=== PATIENT | male | born 1955 | race Caucasian/White ===

== ENCOUNTER 2017-11-20 09:13 | Inpatient (IN) | payer BC ==
[2017-11-20] MEDS ORDERED: MECLIZINE 12.5 MG TAB PO STA (09:39)
[2017-11-20] MEDS ORDERED: METOCLOPRAMIDE 5 MG/ML 2 ML VIAL IVP STA (09:39)
--- NOTE | 2017-11-20 09:43 | ED ---
General Adult HPI - General Chief complaint: Dizziness Stated complaint: Dizzy Time Seen by Provider: 11/20/17 09:33 Source: patient, family, RN notes reviewed Mode of arrival: wheelchair Limitations: no limitations - History of Present Illness Initial comments: Patient is a pleasant 62-year-old male presenting to the emergency department with dizziness. Onset was yesterday. Symptoms have been waxing and waning. Patient does have spinning type sensation. Patient at times has needed help ambulating. Patient has had some blurred vision. No weakness. Patient has had some paresthesias of both of his hands. No confusion. Patient has had a couple episodes of mild chest discomfort. None at this time. Dizziness improved with lying down and worsens with upright position or movements. - Related Data Home Medications Medication Instructions Recorded Confirmed Ibuprofen [Motrin Ib] 400 mg PO Q6H PRN 11/20/17 11/20/17 Allergies Allergy/AdvReac Type Severity Reaction Status Date / Time No Known Allergies Allergy Unverified 11/20/17 10:04 Review of Systems ROS Statement: Those systems with pertinent positive or pertinent negative responses have been documented in the HPI. ROS Other: All systems not noted in ROS Statement are negative. Constitutional: Denies: fever Eyes: Denies: eye pain ENT: Denies: ear pain Respiratory: Denies: cough Cardiovascular: Reports: chest pain Endocrine: Denies: fatigue Gastrointestinal: Reports: nausea. Denies: vomiting Genitourinary: Denies: dysuria Musculoskeletal: Denies: back pain Skin: Denies: rash Neurological: Reports: vertigo. Denies: headache, weakness, confusion Past Medical History Past Medical History: Cancer Additional Past Medical History / Comment(s): hep c colon cancer History of Any Multi-Drug Resistant Organisms: None Reported Past Surgical History: Bowel Resection Past Psychological History: No Psychological Hx Reported Smoking Status: Current every day smoker Past Alcohol Use History: None Reported Past Drug Use History: Marijuana General Exam Limitations: no limitations General appearance: alert, in no apparent distress Head exam: Present: atraumatic Eye exam: Present: normal appearance, PERRL, EOMI. Absent: nystagmus ENT exam: Present: normal oropharynx Neck exam: Present: normal inspection Respiratory exam: Present: normal lung sounds bilaterally Cardiovascular Exam: Present: regular rate, normal rhythm GI/Abdominal exam: Present: soft. Absent: tenderness Extremities exam: Present: normal inspection. Absent: pedal edema, calf tenderness Neurological exam: Present: alert, oriented X3, CN II-XII intact. Absent: motor sensory deficit Expanded Patient oriented to: Present: person, place, time Speech: Present: fluid speech Cranial nerves: EOM's Intact: Normal, Facial Sensation: Normal Cerebellar function: Finger to Nose: Normal Sensory exam: Upper Extremity Light Touch: Normal, Lower Extremity Light Touch: Normal Motor strength exam: RUE: 5, LUE: 5, RLE: 5, LLE: 5 Eye Response: (4) open spontaneously Motor Response: (6) obeys commands Verbal Response: (5) oriented Psychiatric exam: Present: normal affect, normal mood Skin exam: Present: normal color Course Vital Signs 11/20/17 11/20/17 09:19 11:05 Temperature 98.2 F 98.3 F Pulse Rate 61 50 L Respiratory 18 18 Rate Blood Pressure 173/79 135/74 O2 Sat by Pulse 100 98 Oximetry EKG Findings - EKG Comments: EKG Findings:: Atrial bradycardia with rate of 52. IL 156. QRS 106. QT 428. QTC 398. Normal axis. LVH. No acute ST change. Medical Decision Making - Medical Decision Making Patient reevaluated and is somewhat improved with medications. Patient is not quite symptom-free. Patient and family updated on results and plan. Case was discussed in detail with Dr. Ocampo, who will admit his patient. - Lab Data Result diagrams: 11/20/17 09:45 11/20/17 09:45 Lab Results 11/20/17 11/20/17 11/20/17 Range/Units 09:45 09:45 09:45 WBC 10.7 H (3.8-10.6) k/uL RBC 4.29 L (4.30-5.90) m/uL Hgb 14.2 (13.0-17.5) gm/dL Hct 41.8 (39.0-53.0) % MCV 97.5 (80.0-100.0) fL MCH 33.0 (25.0-35.0) pg MCHC 33.9 (31.0-37.0) g/dL RDW 13.7 (11.5-15.5) % Plt Count 275 (150-450) k/uL Neutrophils % 80 % Lymphocytes % 13 % Monocytes % 5 % Eosinophils % 1 % Basophils % 0 % Neutrophils # 8.5 H (1.3-7.7) k/uL Lymphocytes # 1.4 (1.0-4.8) k/uL Monocytes # 0.6 (0-1.0) k/uL Eosinophils # 0.1 (0-0.7) k/uL Basophils # 0.0 (0-0.2) k/uL PT (9.0-12.0) sec INR (<1.2) APTT (22.0-30.0) sec Sodium 138 (137-145) mmol/L Potassium 4.4 (3.5-5.1) mmol/L Chloride 101 (98-107) mmol/L Carbon Dioxide 25 (22-30) mmol/L Anion Gap 12 mmol/L BUN 14 (9-20) mg/dL Creatinine 0.90 (0.66-1.25) mg/dL Est GFR (MDRD) Af Amer >60 (>60 ml/min/1.73 sqM) Est GFR (MDRD) Non-Af >60 (>60 ml/min/1.73 sqM) Glucose 152 H (74-99) mg/dL Calcium 9.7 (8.4-10.2) mg/dL Total Bilirubin 0.5 (0.2-1.3) mg/dL AST 15 L (17-59) U/L ALT 19 L (21-72) U/L Alkaline Phosphatase 56 (38-126) U/L Total Creatine Kinase 64 (55-170) U/L CK-MB (CK-2) 1.1 (0.0-2.4) ng/mL CK-MB (CK-2) Rel Index 1.7 Troponin I <0.012 (0.000-0.034) ng/mL Total Protein 7.1 (6.3-8.2) g/dL Albumin 4.3 (3.5-5.0) g/dL 11/20/17 Range/Units 09:45 WBC (3.8-10.6) k/uL RBC (4.30-5.90) m/uL Hgb (13.0-17.5) gm/dL Hct (39.0-53.0) % MCV (80.0-100.0) fL MCH (25.0-35.0) pg MCHC (31.0-37.0) g/dL RDW (11.5-15.5) % Plt Count (150-450) k/uL Neutrophils % % Lymphocytes % % Monocytes % % Eosinophils % % Basophils % % Neutrophils # (1.3-7.7) k/uL Lymphocytes # (1.0-4.8) k/uL Monocytes # (0-1.0) k/uL Eosinophils # (0-0.7) k/uL Basophils # (0-0.2) k/uL PT 10.2 (9.0-12.0) sec INR 1.0 (<1.2) APTT 23.7 (22.0-30.0) sec Sodium (137-145) mmol/L Potassium (3.5-5.1) mmol/L Chloride (98-107) mmol/L Carbon Dioxide (22-30) mmol/L Anion Gap mmol/L BUN (9-20) mg/dL Creatinine (0.66-1.25) mg/dL Est GFR (MDRD) Af Amer (>60 ml/min/1.73 sqM) Est GFR (MDRD) Non-Af (>60 ml/min/1.73 sqM) Glucose (74-99) mg/dL Calcium (8.4-10.2) mg/dL Total Bilirubin (0.2-1.3) mg/dL AST (17-59) U/L ALT (21-72) U/L Alkaline Phosphatase (38-126) U/L Total Creatine Kinase (55-170) U/L CK-MB (CK-2) (0.0-2.4) ng/mL CK-MB (CK-2) Rel Index Troponin I (0.000-0.034) ng/mL Total Protein (6.3-8.2) g/dL Albumin (3.5-5.0) g/dL - Radiology Data Radiology results: report reviewed (Computed tomography scan of the brain does show some artifacts, otherwise no acute intercranial abnormality.), image reviewed (Chest x-ray shows no acute cardiopulmonary process.) Disposition Clinical Impression: Chest pain, Vertigo Disposition: ADMITTED IP TO THIS [facility] Referrals: Major Ocampo MD [Primary Care Provider] - 1-2 days Decision Time: 12:09
[2017-11-20 09:58] LABS: Basophils % (A) 0 %; Eosinophils # (A) 0.1 k/uL (0-0.7); Eosinophils % (A) 1 %; HCT 41.8 % (39.0-53.0); HGB 14.2 gm/dL (13.0-17.5); Lymphocytes # (A) 1.4 k/uL (1.0-4.8); Lymphocytes % (A) 13 %; MCHC 33.9 g/dL (31.0-37.0); MCV 97.5 fL (80.0-100.0); Mean Platelet Volume 7.3; Monocytes # (A) 0.6 k/uL (0-1.0); Monocytes % (A) 5 %; Neutrophils # (A) 8.5 k/uL (1.3-7.7); Neutrophils % (A) 80 %; Platelet Count 275 k/uL (150-450); RBC 4.29 m/uL (4.30-5.90); RDW 13.7 % (11.5-15.5); WBC 10.7 k/uL (3.8-10.6)
[2017-11-20 10:05] LABS: Partial Thromboplastin Time 23.7 sec (22.0-30.0); Prothrombin Time 10.2 sec (9.0-12.0)
[2017-11-20 10:11] LABS: ALT 19 U/L (21-72); AST 15 U/L (17-59); Albumin 4.3 g/dL (3.5-5.0); Alkaline Phosphatase 56 U/L (38-126); Anion Gap 12 mmol/L; Blood Urea Nitrogen 14 mg/dL (9-20); Calcium 9.7 mg/dL (8.4-10.2); Carbon Dioxide 25 mmol/L (22-30); Chloride 101 mmol/L (98-107); Glucose 152 mg/dL (74-99); Potassium 4.4 mmol/L (3.5-5.1); Sodium 138 mmol/L (137-145); Total Bilirubin 0.5 mg/dL (0.2-1.3); Total Protein 7.1 g/dL (6.3-8.2)
[2017-11-20 10:17] LABS: Creatine Kinase 64 U/L (55-170)
--- NOTE | 2017-11-20 10:21 | CT ---
EXAMINATION TYPE: CT brain wo con DATE OF EXAM: 11/20/2017 COMPARISON: NONE HISTORY: 62-year-old male with vertigo and dizziness TECHNIQUE: Examination was done in axial plane without intravenous contrast. Coronal and sagittal r econstructions performed. CT DLP: 1198 mGycm Automated exposure control for dose reduction was used. FINDINGS: There is no evidence of acute intracranial hemorrhage, acute ischemic changes, mass, mass-effect, or extra-axial fluid collection. There is no effacement of cerebral sulci or basal subarachnoid cister ns. There is no hydrocephalus. There is no midline shift. Montanez-white matter distinction is preserv ed. Some prominent skull base artifacts in the posterior cranial fossa. Paranasal sinuses and mastoid air cells are well pneumatized. Orbits and globes are intact. IMPRESSION: Some posterior artifacts. Within this limitation, no acute intracranial abnormality seen.
--- NOTE | 2017-11-20 10:22 | XR ---
EXAMINATION TYPE: XR chest 2V DATE OF EXAM: 11/20/2017 COMPARISON: 08/30/2010 HISTORY: 62-year-old male dizziness and pain TECHNIQUE: AP and lateral views FINDINGS: Heart normal size. Pulmonary vasculature within normal limits. Stable asymmetric prominence to the l eft hilum likely secondary to scarring. No consolidation or pleural effusion. Mild hyperinflation. IMPRESSION: Hyperinflation may relate to depth of inspiration or underlying emphysema. Left hilar asymmetry is un changed from 2009, probably due to scarring. No acute cardiopulmonary process.
[2017-11-20 10:30] LABS: Creatine Kinase MB 1.1 ng/mL (0.0-2.4); Troponin I <0.012 ng/mL (0.000-0.034)
[2017-11-20] MEDS ORDERED: NITROGLYCERIN SL TABS 0.4 MG TAB SUBLINGUAL PRN (12:10)
[2017-11-20] MEDS ORDERED: SCOPOLAMINE 1.5MG/72HR PATCH TRANSDERM STA (12:12)
[2017-11-20] MEDS ORDERED: MECLIZINE 25 MG TAB PO PRN (12:12)
[2017-11-20] MEDS: SODIUM CHLORIDE 0.9% 1,000 ML IV SCH ×2 (12:27→23:05)
[2017-11-20 16:22] LABS: Troponin I 0.035 ng/mL (0.000-0.034)
[2017-11-20] MEDS ORDERED: IBUPROFEN 400 MG TAB PO PRN (19:22)
[2017-11-20] MEDS: METOCLOPRAMIDE 10 MG TAB PO SCH ×2 (20:01→21:04)
[2017-11-20] MEDS: NITROGLYCERIN OINT 1 INCH/GM PACKET TOPICAL SCH ×2 (21:04→23:10)
[2017-11-20 22:17] LABS: Creatine Kinase MB 0.9 ng/mL (0.0-2.4)
[2017-11-20 22:25] LABS: Troponin I 0.04 ng/mL (0.000-0.034)
--- NOTE | 2017-11-21 05:12 | HP ---
HISTORY AND PHYSICAL CHIEF COMPLAINT: Dizziness, chest pain. HISTORY OF PRESENT ILLNESS: This is another admission of many for this 62-year-old, white male. He had CA of the colon many years ago and has not had any recurrence or sequelae. Takes no medications. He does smoke. He started to have some dizziness, which probably was vertiginous in description and due to labyrinthitis. Came to the emergency room and was assessed and at that time, he was talking about some tightness in his chest. It was decided that he should be admitted to rule out ischemia or myocardial infarction. Enzymes are normal. REVIEW OF SYSTEMS: He has had no syncope, change in vision or hearing, amaurosis fugax, chest pain, shortness of breath, cough, hemoptysis, sputum production, murmurs rheumatic fever, orthopnea, PND, abdominal pain, nausea, vomiting, hematemesis, melena, hematochezia, jaundice, etc. He did have hepatitis and this was treated and he is reported to be virus free. He has had no renal failure, dysuria, frequency, urgency, hematuria, diabetes, etc. Past medical history, family history and personal and social histories are all otherwise unremarkable and noncontributory. He is not on any medications. He is not allergic to any and he has had the procedure for the colon. FAMILY HISTORY: His father had some type of an aneurysm and he thinks it was of the heart. He smokes a pack cigarettes a day. PHYSICAL EXAM: Blood pressure 173/110 and then it dropped to 128/61, pulse is 50. He is afebrile. GENERAL: He appeared to be slender, well developed, well nourished, in no acute distress. Skin color is normal. Skin is warm, dry. Lymph nodes not enlarged. Head, ears, eyes, nose, mouth, and throat were normal. Neck veins not distended. Thyroid is not enlarged. Chest is clear. He has an increased AP diameter. Cardiac exam is normal. No murmurs or extra sounds. The abdomen is flat, soft, and nontender without visceromegaly or masses. Bowel sounds present. EXTREMITIES: Normal. Neurologically, he is intact. IMPRESSION: 1. Dizziness, probably due to viral labyrinthitis. 2. Chronic obstructive pulmonary disease. 3. Chest pain. 4. History of hepatitis C. 5. History cancer of the colon. PLAN: 1. Bed rest. 2. IV fluids. 3. Serial EKGs and enzymes. MMSARITAL / NICOLASN: [id number] /
[2017-11-21] MEDS: NITROGLYCERIN OINT 1 INCH/GM PACKET TOPICAL SCH (05:58)
[2017-11-21 06:52] LABS: Cholesterol 138 mg/dL (<200); HDL Cholesterol 36 mg/dL (40-60); LDL Cholesterol,Calculated 89 mg/dL (0-99); Triglycerides 67 mg/dL (<150)
[2017-11-21] MEDS: SODIUM CHLORIDE 0.9% 1,000 ML IV SCH ×3 (07:57→21:42)
--- NOTE | 2017-11-21 10:00 | P.CRDCN ---
History of Present Illness Consult date: 11/21/17 Requesting physician: Major Ocampo Chief complaint: Dizziness and near syncope History of present illness: This is a 62-year-old gentleman with no prior documented history of hypertension, no diabetes, no hyperlipidemia, history of hepatitis C, he is a smoker, also has history of cancer of the colon several years ago. He presents to the hospital with symptoms of dizziness and lightheadedness and a feeling like he may pass out. He does state he had 1 episode of chest discomfort approximately 2 days ago. Denies any overt shortness of breath, he does have productive cough of green sputum. CAT scan of the brain performed on admission reveals some posterior artifacts, no acute intracranial abnormality was noted. Chest x-ray shows hyperinflation, may relate to depth of inspiration or underlying emphysema. No acute process noted. EKG on admission shows a sinus bradycardia with no acute changes. Blood pressure on arrival 173/78 heart rate in the 50s to 60s, 100% on room air. Laboratory data was reviewed, white blood cell count 10.7, hemoglobin 14.2, platelet count 275. D-dimer 0.24. Sodium 138 , potassium 4.4, BUN 14, creatinine 0.9. AST 15, ALT 19, troponin 0.012, 0.035 , 0.040. At the time of my examination this morning, patient denies any dizziness or lightheadedness, no chest discomfort, continues to have productive cough of green sputum. Past Medical History Past Medical History: Cancer, Liver Disease Additional Past Medical History / Comment(s): Hep c successfully treated, colo/ rectal cancer with surgery/chemo/radiation, colon polyps, diverticular dx, L spontaneous pneumothoraxs with chest tube. History of Any Multi-Drug Resistant Organisms: None Reported Past Surgical History: Bowel Resection Additional Past Surgical History / Comment(s): colonoscopies/polypectomies Past Anesthesia/Blood Transfusion Reactions: No Reported Reaction Past Psychological History: No Psychological Hx Reported Additional Psychological History / Comment(s): Pt resides alone. He is independent. He does factory work. Smoking Status: Current every day smoker Past Alcohol Use History: None Reported Additional Past Alcohol Use History / Comment(s): Pt started smoking in 1971 and is less than a ppd smoker. Additional Drug Use History / Comment(s): Pt denies any past drug use. - Past Family History Father Additional Family Medical History / Comment(s): Father from a ruptured coronary aneurysm at the age of 49yrs. Mother Family Medical History: Cancer Additional Family Medical History / Comment(s): Mother had cervical cancer with metastasis to brain. she at the age of 60yrs. Medications and Allergies Home Medications Medication Instructions Recorded Confirmed Type Ibuprofen [Motrin Ib] 400 mg PO Q6H PRN 11/20/17 11/20/17 History Allergies Allergy/AdvReac Type Severity Reaction Status Date / Time No Known Allergies Allergy Unverified 11/20/17 10:04 Physical Exam Vitals: Vital Signs Temp Pulse Pulse Resp BP BP BP 11/21/17 08:00 97.6 F 46 L 16 129/65 11/21/17 04:00 97.5 F L 51 L 16 118/61 11/21/17 00:00 96.7 F L 48 L 16 113/56 11/20/17 20:00 98.6 F 51 L 16 120/55 11/20/17 18:20 99.0 F 50 L 18 128/61 11/20/17 14:07 99.1 F 52 L 18 140/72 11/20/17 12:39 55 L 16 145/78 11/20/17 11:05 98.3 F 50 L 18 135/74 Pulse Ox 11/21/17 08:00 97 11/21/17 04:00 97 11/21/17 00:00 97 11/20/17 20:00 97 11/20/17 18:20 98 11/20/17 14:07 97 11/20/17 12:39 99 11/20/17 11:05 98 Intake and Output 11/20/17 11/21/17 11/21/17 22:59 06:59 14:59 Intake Total 800 800 Balance 800 800 Intake: IV 800 800 Sodium Chloride 0.9% 1, 800 800 000 ml @ 100 mls/hr IV . Q10H [facility] Rx#:[id number] Other: Voiding Method Toilet Toilet Toilet # Voids 2 Weight 73.1 kg Patient Weight 11/22/17 06:59 Weight 73.1 kg PHYSICAL EXAMINATION: HEENT: Head is atraumatic, normocephalic. Pupils equal, round. Neck is supple. There is no elevated jugular venous pressure. HEART EXAMINATION: Heart S1, S2 normal. No murmur or gallop heard. CHEST EXAMINATION: Lungs reveal scattered coarse rhonchi throughout, clears with cough ABDOMEN: Soft, nontender. Bowel sounds are heard. No organomegaly noted. EXTREMITIES: 2+ peripheral pulses with no evidence of peripheral edema and no calf tenderness noted. NEUROLOGIC patient is awake, alert and oriented -3. . Results 11/20/17 09:45 11/20/17 09:45 Cardiac Enzymes 11/20/17 11/20/17 11/20/17 Range/Units 09:45 09:45 15:31 AST 15 L (17-59) U/L CK-MB (CK-2) 1.1 1.0 (0.0-2.4) ng/mL Troponin I <0.012 0.035 H* (0.000-0.034) ng/mL 11/20/17 Range/Units 21:28 AST (17-59) U/L CK-MB (CK-2) 0.9 (0.0-2.4) ng/mL Troponin I 0.040 H* (0.000-0.034) ng/mL Coagulation 11/20/17 Range/Units 09:45 PT 10.2 (9.0-12.0) sec APTT 23.7 (22.0-30.0) sec Lipids 11/21/17 Range/Units 06:06 Triglycerides 67 (<150) mg/dL Cholesterol 138 (<200) mg/dL HDL Cholesterol 36 L (40-60) mg/dL CBC 11/20/17 Range/Units 09:45 WBC 10.7 H (3.8-10.6) k/uL RBC 4.29 L (4.30-5.90) m/uL Hgb 14.2 (13.0-17.5) gm/dL Hct 41.8 (39.0-53.0) % Plt Count 275 (150-450) k/uL Comprehensive Metabolic Panel 11/20/17 Range/Units 09:45 Sodium 138 (137-145) mmol/L Potassium 4.4 (3.5-5.1) mmol/L Chloride 101 (98-107) mmol/L Carbon Dioxide 25 (22-30) mmol/L BUN 14 (9-20) mg/dL Creatinine 0.90 (0.66-1.25) mg/dL Glucose 152 H (74-99) mg/dL Calcium 9.7 (8.4-10.2) mg/dL AST 15 L (17-59) U/L ALT 19 L (21-72) U/L Alkaline Phosphatase 56 (38-126) U/L Total Protein 7.1 (6.3-8.2) g/dL Albumin 4.3 (3.5-5.0) g/dL Current Medications Generic Name Dose Route Start Last Admin Trade Name Freq PRN Reason Stop Dose Admin Aspirin 325 mg 11/21/17 09:00 Aspirin PO DAILY [facility] Sodium Chloride 1,000 mls @ 100 mls/hr 11/20/17 12:15 11/21/17 07:57 Saline 0.9% IV 100 mls/hr .Q10H ANNA Administration Meclizine HCl 25 mg 11/20/17 12:12 Antivert PO QID PRN Vertigo Metoclopramide HCl 10 mg 11/20/17 17:30 11/20/17 21:04 Reglan PO 10 mg ACHS ANNA Administration Nitroglycerin 1 inch 11/20/17 18:00 11/21/17 05:58 Nitro-Bid Oint TOPICAL Not Given Q6HR [facility] Nitroglycerin 0.4 mg 11/20/17 12:10 Nitrostat SUBLINGUAL Q5M PRN Chest Pain Intake and Output 11/20/17 11/21/17 11/21/17 22:59 06:59 14:59 Intake Total 800 800 Balance 800 800 Intake: IV 800 800 Sodium Chloride 0.9% 1, 800 800 000 ml @ 100 mls/hr IV . Q10H [facility] Rx#:[id number] Other: Voiding Method Toilet Toilet Toilet # Voids 2 Weight 73.1 kg Patient Weight 11/22/17 06:59 Weight 73.1 kg 11/20/17 09:45 11/20/17 09:45 EKG Interpretations (text) EKG shows a sinus bradycardia with no acute changes. Assessment and Plan Plan: Assessment and plan #1 symptoms of dizziness and lightheadedness with near syncope. Possible vertigo. EKG shows a sinus bradycardia with a heart rate in the 40s to 50s. #2 chest discomfort, with atypical features for acute coronary syndrome. Troponin 0.012, 0.035, 0.040. EKG shows sinus bradycardia with no acute changes. #3 nicotine dependence #4 history of hepatitis C Plan We will obtain an echocardiogram with Doppler study. We will also obtain a TSH level. Patient will be scheduled for a Lexiscan stress test tomorrow. Further recommendations to follow. DNP note has been reviewed, I agree with a documented findings and plan of care. Patient was seen and examined.
[2017-11-21] MEDS: METOCLOPRAMIDE 10 MG TAB PO SCH ×4 (11:41→20:44)
--- NOTE | 2017-11-21 11:44 | ECHOF ---
Referral Reason:chest pain MEASUREMENTS -------- HEIGHT: 185.4 cm WEIGHT: 73.0 kg BP: RVIDd: 3.2 cm (< 3.3) IVSd: 1.3 cm (0.6 - 1.1) LVIDd: 4.6 cm (3.9 - 5.3) LVPWd: 1.3 cm (0.6 - 1.1) IVSs: 1.6 cm LVIDs: 2.9 cm LVPWs: 1.4 cm LAESV Index (A-L): 25.30 ml/m Ao Diam: 3.2 cm (2.0 - 3.7) AV Cusp: 2.1 cm (1.5 - 2.6) LA Diam: 3.6 cm (2.7 - 3.8) EPSS: 0.6 cm MV E Alexandre: 0.75 m/s MV DecT: 400 ms MV A Alexandre: 0.82 m/s MV E/A Ratio: 0.91 RAP: 5.00 mmHg RVSP: 34.24 mmHg MV EF SLOPE: 125.71 mm/s (70 - 150) MV EXCURSION: 2.02 cm (> 18.000) FINDINGS -------- Sinus rhythm. This was a technically good study. The left ventricular size is normal. There is mild concentric left ventricular hypertrophy. Overa ll left ventricular systolic function is normal with, an EF between 60 - 65 %. The right ventricle is normal in size and function. Normal LA size by volume 22+/-6 ml/m2. RA appears enlarged. Aortic valve is trileaflet and is mildly thickened. There is no evidence of aortic regurgitation. There is no evidence of aortic stenosis. The mitral valve leaflets are mildly thickened. There is trace to mild mitral regurgitation. Trace tricuspid regurgitation present. Right ventricular systolic pressure is normal at < 35 mmHg. There is borderline pulmonary hypertension. The pulmonic valve was not well visualized. The aortic root size is normal. Normal inferior vena cava with normal inspiratory collapse consistent with estimated right atrial pre ssure of 5 mmHg. The pericardium is normal. There is no pericardial effusion. CONCLUSIONS -------- 1. Sinus rhythm. 2. This was a technically good study. 3. The left ventricular size is normal. 4. There is mild concentric left ventricular hypertrophy. 5. Overall left ventricular systolic function is normal with, an EF between 60 - 65 %. 6. Normal LA size by volume 22+/-6 ml/m2. 7. RA appears enlarged. 8. Aortic valve is trileaflet and is mildly thickened. 9. The mitral valve leaflets are mildly thickened. 10. There is trace to mild mitral regurgitation. 11. Trace tricuspid regurgitation present. 12. Right ventricular systolic pressure is normal at < 35 mmHg. 13. There is borderline pulmonary hypertension. 14. The pulmonic valve was not well visualized. 15. The aortic root size is normal. 16. There is no pericardial effusion. RETOUCHING OPERATOR: Stewart Cleary RDCS
[2017-11-21] MEDS: ASPIRIN 325 MG TAB PO SCH (11:45)
--- NOTE | 2017-11-21 22:16 | PN ---
PROGRESS NOTE CHIEF COMPLAINT: Dizziness and chest pressure. HISTORY OF PRESENT ILLNESS: This gentleman is feeling very well, his troponins have been going up and he will be seen by Cardiology. PHYSICAL EXAM: CHEST: Clear. Cardiac exam is normal. Abdomen soft and nontender. IMPRESSION: 1. Chest discomfort. 2. Acute myocardial infarction. 3. Dizziness. 4. Episodes of bradycardia. 5. Chronic obstructive pulmonary disease. PLAN: Cardiology consult. MMODL / IJN: [id number] /
[2017-11-22] MEDS ORDERED: AMINOPHYLLINE 500 MG/20 ML VIAL IV PRN (06:00)
[2017-11-22] MEDS ORDERED: REGADENOSON 0.4 MG/5 ML SYRINGE IV ONE (06:00)
[2017-11-22] MEDS: METOCLOPRAMIDE 10 MG TAB PO SCH ×2 (07:39→13:08)
[2017-11-22] MEDS: ASPIRIN 325 MG TAB PO SCH (10:44)
--- NOTE | 2017-11-22 10:56 | NM ---
EXAMINATION TYPE: NM stress lexiscan cardiolite DATE OF EXAM: 11/22/2017 COMPARISON: NONE HISTORY: History of tobacco use and family history of heart attack presents with chest pain and diffi culty breathing and palpitations. TECHNIQUE: After the intravenous administration of 11 mCi Tc 99m Sestamibi - Cardiolite resting SPEC T images acquired 75 minutes post injection. The patient received 0.4mg Lexiscan, 27.9 mCi Tc 99m Sestamibi - Stress images obtained [address] injection FINDINGS: Review of stress and rest SPECT images demonstrates subtle area of diminished perfusion towards the a pex involving anterior left ventricular wall in which area of acute ischemia cannot be excluded. Fin dings best visualized on horizontal long axis views but reproduced on additional views and polar view s. Gated analysis shows normal wall motion with an estimated left ventricular ejection fraction of 57 %. IMPRESSION: Cannot exclude acute ischemia anterior left ventricular wall near apex. Correlate clinically and with EKG to determine need for further investigation by direct catheter angiogram.
[2017-11-22] MEDS ORDERED: ALPRAZolam 0.5 MG TAB PO PRN (11:49)
[2017-11-22] MEDS ORDERED: ASPIRIN 325 MG TAB PO STA (11:49)
[2017-11-22] MEDS ORDERED: NITROGLYCERIN SL TABS 0.4 MG TAB SUBLINGUAL PRN ×2 (11:49→15:00)
[2017-11-22] MEDS ORDERED: ALPRAZolam 0.25 MG TAB PO PRN (11:49)
[2017-11-22] MEDS ORDERED: SODIUM CHLORIDE 0.9% 1,000 ML in EMPTY BAG 1 BAG IV ONE (11:49)
[2017-11-22] MEDS ORDERED: ATORVASTATIN 80 MG TAB PO STA (11:53)
--- NOTE | 2017-11-22 11:53 | EST ---
EXERCISE STRESS DATE OF SERVICE: 11/22/2017 AGE: 62 SEX: Male HT: 6'1" WT: 161 pounds PROTOCOL: Lexiscan Cardiolite STAGE: DURATION OF EXERCISE: HEART RATE REST: 42 BLOOD PRESSURE REST: 139/64 MAXIMUM HEART RATE ACHIEVED: 68 MAXIMUM BLOOD PRESSURE: 148/44 85% MPHR: 133 100% MPHR: 157 METS: INDICATION FOR THE STUDY: Chest pain. CLINICAL INFORMATION: STRESS DATA: Pretesting physical examination showed heart rate of 42, pressure is 139/64 mmHg. Baseline EKG showed sinus mechanism. A 0.4 mg of Lexiscan was given to the patient over 15 seconds per protocol. Max heart rate was 68 beats per minute and maximum pressure was 148/44 mmHg. Clinically, the patient did not have any symptoms of chest pain or discomfort. The EKG did not show any significant ST or T-wave abnormalities consistent with ischemia. CONCLUSION: 1. Nondiagnostic electrocardiogram stress testing in response to Lexiscan. 2. Please follow up on the Cardiolite portion on a separate report from radiology department. MMODL / IJN: [id number] /
--- NOTE | 2017-11-22 12:59 | PN ---
PROGRESS NOTE This patient was admitted with dizziness and sinus bradycardia. Patient had a mildly elevated troponin. The patient did not have any chest discomfort. Echocardiogram was normal. He underwent Lexiscan Cardiolite study which showed evidence of possible some anterior apical ischemia. In view of that, the patient is recommended to have a cardiac catheterization for definitive diagnosis. The procedure and risks were fully explained to the patient. The patient's T4 and TSH are normal. Exact etiology of present sinus bradycardia is unclear. MMODL / IJN: [id number] /
[2017-11-22] MEDS ORDERED: IV FLUID CONTINUATION 900 ML IV ONE (13:52)
[2017-11-22] MEDS ORDERED: MIDAZOLAM 2 MG/2 ML VIAL ONE (14:02)
[2017-11-22] MEDS ORDERED: fentaNYL (PF) 50 MCG/ML 2 ML AMP ONE (14:02)
[2017-11-22] MEDS ORDERED: fentaNYL (PF) 50 MCG/ML 2 ML AMP IV ONE ×2 (14:06→14:08)
[2017-11-22] MEDS ORDERED: MIDAZOLAM 2 MG/2 ML VIAL IV ONE ×2 (14:07→14:09)
[2017-11-22] MEDS ORDERED: LIDOCAINE 2% INJ 20 MG/ML SQ ONE (14:08)
[2017-11-22] MEDS ORDERED: NITROGLYCERIN SL TABS 0.4 MG TAB SUBLINGUAL ONE (14:16)
[2017-11-22] MEDS ORDERED: PRASUGREL 10 MG TAB ONE (14:42)
[2017-11-22] MEDS ORDERED: BIVALIRUDIN BOLUS 250 MG/50 ML IV ONE (14:42)
[2017-11-22] MEDS ORDERED: BIVALIRUDIN 250 MG in SODIUM CHLORIDE 0.9% 50 ML IV ONE (14:43)
[2017-11-22] MEDS ORDERED: PRASUGREL 10 MG TAB PO ONE (14:47)
[2017-11-22] MEDS ORDERED: IOHEXOL 350 MG/ML 125ML BOTTLE INJ ONE (14:59)
[2017-11-22] MEDS ORDERED: RX INFO: IV CONTRAST WAS GIVEN 1 EACH MISC MISCELLANE PRN (15:00)
[2017-11-22] MEDS ORDERED: ZOLPIDEM 5 MG TAB PO PRN (15:00)
[2017-11-22] MEDS ORDERED: MAG HYDROX/AL HYDROX/SIMETH 30 ML CUP PO PRN (15:00)
[2017-11-22] MEDS ORDERED: SODIUM CHLORIDE 0.9% 1,000 ML IV SCH (15:00)
[2017-11-22] MEDS ORDERED: ATROPINE SULFATE 0.1 MG/ML 10ML SYRINGE IV PRN (15:00)
[2017-11-22] MEDS ORDERED: LISINOPRIL 5 MG TAB PO STA (16:03)
--- NOTE | 2017-11-22 20:02 | PN ---
PROGRESS NOTE DATE OF SERVICE: 11/22/2017 CHIEF COMPLAINT: Elevated troponin. HISTORY OF PRESENT ILLNESS: This gentleman is going today for a stress study. He has had no further pain or shortness of breath. PHYSICAL EXAMINATION: The chest is clear. Cardiac exam is normal. Abdomen is soft and nontender. IMPRESSION: 1. ? acute myocardial infarction. 2. Chronic obstructive pulmonary disease. PLAN: Await results of stress study today. MMODL / IJN: [id number] /
--- NOTE | 2017-11-22 22:41 | CC ---
CARDIAC CATHETERIZATION REPORT Rashid Leonard is a 62-year-old gentleman came to the hospital with symptoms of dizziness and lightheadedness. Did not have any chest pain. Patient had a evidence of sinus bradycardia. The patient had a minimally elevated troponin and the EKG and cardiac enzymes were otherwise normal. Stress test was performed which showed evidence of inferior apical ischemia. In view of that, the patient was recommended to have a cardiac catheterization. PROCEDURE: The right groin was prepped in the usual manner and the skin was infiltrated with 2% Xylocaine. The right femoral artery was entered using Seldinger technique a #6-Romanian sheath was placed in. Selective coronary angiography was then performed in multiple projections and the left ventricular pressures were performed. The patient tolerated the procedure well. HEMODYNAMICS: The left ventricular end-diastolic pressure is 8 to 12 mmHg prior to angiography. No gradient is noted across the aortic valve. SELECTIVE CORONARY ANGIOGRAPHY: Left main coronary artery is normal and patent. LAD is a good caliber blood vessel. Mid LAD has about 30% stenosis. Circumflex coronary artery is normal. There was a good size obtuse marginal branch noted. Right coronary artery is a normal caliber blood vessel, and mid RCA has about 90% stenosis. FINAL IMPRESSION: This study shows a 90% stenosis in the mid RCA. Mid LAD has about 30% stenosis. RECOMMENDATION: We will proceed with a stent to the RCA. MMODL / IJN: [id number] /
--- NOTE | 2017-11-22 23:02 | PTCA ---
PERCUTANEOUSTRANS CORORONARY ANGIOGRAPHY Mr. Leonard is a 62-year-old male who presented with mild troponin elevation, had abnormal myocardial perfusion imaging, underwent cardiac catheterization by Dr. Duffy and was found to have critical stenosis involving the mid right coronary artery. In view of that, recommendation was made regarding coronary angioplasty and stenting. The procedure, its risks and complication were discussed with the patient, who was in full understanding and agreement. PROCEDURE: A 6-Arabic FR4 guiding catheter was introduced in the system. After cannulating the right coronary ostium, a 0.014 advanced medium weight J-wire was advanced across the lesion and positioned distally. Then a 3.25 x 18 mm Xience Alpine stent was deployed and post dilated at 14 atmospheres. After the last inflation, after appropriate wait, the balloon and the guidewire were withdrawn back into the guiding catheter. Images were obtained and repeated. Those images revealed stable successful stenting. At that point the guiding catheter, the balloon and the guidewire were removed. The sheath was removed. Hemostasis was obtained with deployment of an Angio-Seal. There was no immediate complication. Patient was returned to his room in stable condition. Of note, the patient received Angiomax per protocol as well as oral loading dose of Effient. RESULTS: Successful stenting of the mid right coronary artery with reduction of stenosis from 90% to 0%. RECOMMENDATIONS: Patient will be continued on aspirin, Effient, CLAYTON inhibitor and statin. The importance of dual antiplatelet treatment was discussed with the patient and his family, and they are in full understanding and agreement. Duration of the procedure was 13 minutes. MMSARITAL / NICOLASN: [id number] /
--- NOTE | 2017-11-22 23:08 | LTR ---
11/22/[address] Ocampo, I had the pleasure of performing coronary angioplasty and stenting on Mr. Leonard at [facility] on November 22, 2017. A full copy of the procedure note will be forwarded to you. In brief, he underwent successful stenting of his mid right coronary artery using a drug-eluting stent. I am hopeful that this procedure will stabilize his status. Thank you again for allowing me to participate in his care. Please feel free to call with any questions. Sincerely, Johanny ALVARADOL / LIZET: [id number] /
[2017-11-23 07:14] LABS: Anion Gap 8 mmol/L; Blood Urea Nitrogen 13 mg/dL (9-20); Calcium 9.3 mg/dL (8.4-10.2); Carbon Dioxide 25 mmol/L (22-30); Chloride 108 mmol/L (98-107); Glucose 89 mg/dL (74-99); Potassium 4.4 mmol/L (3.5-5.1); Sodium 141 mmol/L (137-145)
[2017-11-23 07:58] VITALS: RESP 16
[2017-11-23] MEDS ORDERED: PRASUGREL 10 MG TAB PO SCH (09:00)
[2017-11-23] MEDS ORDERED: ASPIRIN 81 MG PO SCH (09:00)
[2017-11-23] MEDS ORDERED: LISINOPRIL 5 MG TAB PO SCH (09:00)
[2017-11-23 10:21] VITALS: BMI 21.2
[2017-11-23 11:58] VITALS: PULSE 53
[2017-11-23 12:08] VITALS: BP 146/76; TEMP 98.4
[2017-11-23] MEDS ORDERED: VARENICLINE 1 MG TAB PO SCH (12:15)
[2017-11-23] MEDS ORDERED: ATORVASTATIN 80 MG TAB PO SCH (21:00)
[2017-11-23] MEDS ORDERED: TICAGRELOR 90 MG TAB PO SCH (21:00)
--- NOTE | 2017-11-23 22:51 | PN ---
PROGRESS NOTE This patient was admitted with bradycardia and lightheadedness, because of the positive stress test, patient underwent cardiac catheterization, and patient was found to have a 90% stenosis in the mid RCA, underwent stent placement. Patient is doing well. The patient's heart rate now is 60. First and second heart sounds are normal. Lungs are clinically clear to auscultation and percussion. The patient is discharged home. He will follow up in the office in couple of weeks. NORMAN / NICOLASN: [id number] /
--- NOTE | 2017-11-24 08:58 | DS ---
DISCHARGE SUMMARY CHIEF COMPLAINT: Shortness of breath, bradycardia and dizziness. HISTORY OF PRESENT ILLNESS AND PHYSICAL EXAM: Details of this man's history and physical can be found in the initial workup. LABORATORY STUDIES: While he was in a hospital, he had laboratory studies, details which can be found in the laboratory section of chart. COURSE IN HOSPITAL: After admission, he was placed on bedrest, started on intravenous fluids and was found to have a slightly elevated troponin. He was seen by Cardiology and eventually taken for a Lexiscan and was found to have coronary artery disease for which 1 stent was placed. He is doing well and felt that he could go home on the to be seen in the office in several days. FINAL DIAGNOSIS: 1. Acute myocardial infarction. 2. Coronary artery disease. 3. Chronic obstructive pulmonary disease. OPERATIONS: Cardiac cath and stent placement. CONSULTATIONS: Cardiology. He is improved. MMPAO / LIZET: [id number] /
== END 2017-11-23 15:38 | disposition home or self-care (01) | DRG 247 ==
LOC: EC 09:13 → 6SEL 12:10
PROVIDERS: ADMIT Family Medicine; ATTEND Family Medicine
PROC: B2111ZZ Fluoroscopy of Multiple Coronary Arteries using Low Osmolar Contrast (ICD-10-PCS; 2017-11-22)
PROC: 027034Z Dilation of Coronary Artery, One Artery with Drug-eluting Intraluminal Device, Percutaneous Approach (ICD-10-PCS; principal; 2017-11-22 13:52)
PROC: 4A023N7 Measurement of Cardiac Sampling and Pressure, Left Heart, Percutaneous Approach (ICD-10-PCS; 2017-11-22 13:52)
DX: I21.9 Acute myocardial infarction, unspecified (principal); F17.210 Nicotine dependence, cigarettes, uncomplicated; H83.09 Labyrinthitis, unspecified ear; I25.10 Atherosclerotic heart disease of native coronary artery without angina pectoris; R00.1 Bradycardia, unspecified; J44.9 Chronic obstructive pulmonary disease, unspecified; R42 Dizziness and giddiness; Z85.038 Personal history of other malignant neoplasm of large intestine
CPT/HCPCS: 36415; 70450; 71046; 78452; 80048; 80053; 80061; 82550; 82553; 84443; 84484; 85025; 85379; 85610; 85730; 93005; 93017; 93306; 93458; 96361; 96374; 99285

== ENCOUNTER 2018-01-02 08:31 | Observation (INO) | payer BC ==
[2018-01-02] MEDS ORDERED: ASPIRIN 81 MG PO STA (08:43)
--- NOTE | 2018-01-02 09:44 | XR ---
EXAMINATION TYPE: XR chest 1V portable DATE OF EXAM: 01/02/2018 COMPARISON: Prior chest x-ray 11/20/2017 HISTORY: Chest pain, shortness of breath TECHNIQUE: Single frontal view of the chest is obtained. FINDINGS: There is no focal air space opacity, pleural effusion, or pneumothorax seen. The cardiac silhouette size is stable. Prominent lung volumes may be indicative of COPD. There are overlying card iac leads. The osseous structures are intact. IMPRESSION: No acute process.
[2018-01-02 09:48] LABS: Basophils % (A) 0 %; Eosinophils # (A) 0.1 k/uL (0-0.7); Eosinophils % (A) 1 %; HCT 40.3 % (39.0-53.0); HGB 13.8 gm/dL (13.0-17.5); Lymphocytes % (A) 12 %; MCH 32.1 pg (25.0-35.0); MCHC 34.2 g/dL (31.0-37.0); MCV 93.7 fL (80.0-100.0); Mean Platelet Volume 6.7; Monocytes # (A) 0.5 k/uL (0-1.0); Monocytes % (A) 6 %; Neutrophils # (A) 6.5 k/uL (1.3-7.7); Neutrophils % (A) 80 %; Platelet Count 256 k/uL (150-450); RDW 12.8 % (11.5-15.5); WBC 8.2 k/uL (3.8-10.6)
[2018-01-02 09:59] LABS: ALT 29 U/L (21-72); AST 25 U/L (17-59); Albumin 4.6 g/dL (3.5-5.0); Alkaline Phosphatase 55 U/L (38-126); Anion Gap 10 mmol/L; Blood Urea Nitrogen 16 mg/dL (9-20); Calcium 10.3 mg/dL (8.4-10.2); Carbon Dioxide 27 mmol/L (22-30); Chloride 106 mmol/L (98-107); Glucose 84 mg/dL (74-99); Lipase 112 U/L (23-300); Magnesium 2.1 mg/dL (1.6-2.3); Potassium 5.9 mmol/L (3.5-5.1); Sodium 143 mmol/L (137-145); Total Bilirubin 0.6 mg/dL (0.2-1.3); Total Protein 7.3 g/dL (6.3-8.2)
[2018-01-02 10:00] LABS: INR 1.1 (<1.2); Partial Thromboplastin Time 23.9 sec (22.0-30.0); Prothrombin Time 10.3 sec (9.0-12.0)
[2018-01-02] MEDS ORDERED: NALOXONE 0.4 MG/ML 1 ML VIAL IV PRN (11:30)
[2018-01-02] MEDS ORDERED: HYDROcodone/APAP 5-325MG 1 EACH TAB PO PRN (11:30)
[2018-01-02] MEDS ORDERED: ONDANSETRON 4 MG/2 ML VIAL IVP PRN (11:30)
--- NOTE | 2018-01-02 11:30 | ED ---
Chest Pain HPI - General Chief Complaint: Chest Pain Stated Complaint: Chest pain Time Seen by Provider: 01/02/18 08:40 Source: patient Mode of arrival: wheelchair Limitations: no limitations - History of Present Illness Initial Comments: Patient complains of chest pain. Pain is substernal. It radiates the left side. He has some diaphoresis and nausea. He has no back pain. He has no belly pain. He denies recent illness or sick contacts. He has no palpitations. He has no pain or swelling in the arms or legs. He took no medications. He was not doing anything when the symptoms began an hour or 2 ago. He denies any recent travel. He has had no injuries. - Related Data Home Medications Medication Instructions Recorded Confirmed Aspirin 81 mg PO HS 01/02/18 01/02/18 Previous Rx's Medication Instructions Recorded Atorvastatin [Lipitor] 80 mg PO HS #30 tab 11/23/17 Lisinopril [Zestril] 5 mg PO DAILY #30 tab 11/23/17 Nitroglycerin Sl Tabs [Nitrostat] 0.4 mg SUBLINGUAL Q5M PRN #25 tab 11/23/17 Ticagrelor [Brilinta] 90 mg PO BID #60 tab 11/23/17 Allergies Allergy/AdvReac Type Severity Reaction Status Date / Time No Known Allergies Allergy Verified 01/02/18 09:29 Review of Systems ROS Statement: Those systems with pertinent positive or pertinent negative responses have been documented in the HPI. ROS Other: All systems not noted in ROS Statement are negative. EKG Findings - EKG Comments: EKG Findings:: Twelve-lead EKG interpreted by me as showing ventricular rate 57 bpm, normal MN interval and QRS complex is, no ST elevation or depression, interpreted by me as normal sinus rhythm. Past Medical History Past Medical History: Cancer, Liver Disease Additional Past Medical History / Comment(s): Hep c successfully treated, colo/ rectal cancer with surgery/chemo/radiation, colon polyps, diverticular dx, L spontaneous pneumothoraxs with chest tube. History of Any Multi-Drug Resistant Organisms: None Reported Past Surgical History: Bowel Resection Additional Past Surgical History / Comment(s): colonoscopies/polypectomies Past Anesthesia/Blood Transfusion Reactions: No Reported Reaction Past Psychological History: No Psychological Hx Reported Smoking Status: Current every day smoker Past Alcohol Use History: None Reported Past Drug Use History: None Reported - Past Family History Father Additional Family Medical History / Comment(s): Father from a ruptured coronary aneurysm at the age of 49yrs. Mother Family Medical History: Cancer Additional Family Medical History / Comment(s): Mother had cervical cancer with metastasis to brain. she at the age of 60yrs. General Exam Limitations: no limitations General appearance: alert, in no apparent distress Head exam: Present: atraumatic, normocephalic, normal inspection Eye exam: Present: normal appearance, PERRL, EOMI. Absent: scleral icterus, conjunctival injection, periorbital swelling ENT exam: Present: normal exam, mucous membranes moist Neck exam: Present: normal inspection. Absent: tenderness, meningismus, lymphadenopathy Respiratory exam: Present: normal lung sounds bilaterally. Absent: respiratory distress, wheezes, rales, rhonchi, stridor Cardiovascular Exam: Present: regular rate, normal rhythm, normal heart sounds. Absent: systolic murmur, diastolic murmur, rubs, gallop, clicks GI/Abdominal exam: Present: soft, normal bowel sounds. Absent: distended, tenderness, guarding, rebound, rigid Extremities exam: Present: normal inspection, full ROM, normal capillary refill. Absent: tenderness, pedal edema, joint swelling, calf tenderness Back exam: Present: normal inspection Neurological exam: Present: alert, oriented X3, CN II-XII intact Psychiatric exam: Present: normal affect, normal mood Skin exam: Present: warm, dry, intact, normal color. Absent: rash Course Vital Signs 01/02/18 01/02/18 01/02/18 08:32 09:41 11:00 Temperature 98.5 F Pulse Rate 65 56 L 53 L Respiratory 18 17 17 Rate Blood Pressure 186/83 149/81 140/67 O2 Sat by Pulse 100 100 99 Oximetry Chest Pain [facility] Patient presents with acute typical cardiac chest pain. His workup so far is negative. I will consult cardiology and bring him into the hospital. Disposition Clinical Impression: Chest pain Disposition: ADMITTED IP TO THIS [facility] Condition: Fair Referrals: Major Ocampo MD [Primary Care Provider] - 1-2 days Time of Disposition: 11:29
[2018-01-02] MEDS: LISINOPRIL 5 MG TAB PO SCH (11:52)
[2018-01-02] MEDS: TICAGRELOR 90 MG TAB PO SCH ×2 (11:52→21:42)
[2018-01-02] MEDS ORDERED: ASPIRIN 81 MG PO SCH (21:00)
[2018-01-02] MEDS: ATORVASTATIN 80 MG TAB PO SCH (21:42)
[2018-01-02] MEDS: FAMOTIDINE 20 MG TAB PO SCH (21:42)
[2018-01-03 07:59] LABS: Anion Gap 9 mmol/L; Blood Urea Nitrogen 22 mg/dL (9-20); Calcium 9.6 mg/dL (8.4-10.2); Carbon Dioxide 25 mmol/L (22-30); Chloride 106 mmol/L (98-107); Glucose 92 mg/dL (74-99); Potassium 4.7 mmol/L (3.5-5.1); Sodium 140 mmol/L (137-145)
--- NOTE | 2018-01-03 10:17 | P.CRDCN ---
History of Present Illness Consult date: 01/03/18 History of present illness: This is a 62-year-old gentleman with history of hypertension, and chronic smoking and also hepatitis C who was admitted to this hospital in October with her chest pain dizziness. Had a Lexiscan stress test and subsequently had a cardiac catheterization. He was found to have 90% stenosis of the RCA. Patient had a stent placement of the RCA at the time. Subsequently, patient had a low-level stress test also on December 04, which was negative for ischemia. Yesterday patient started having some chest tightness around 8 AM associated with some dizziness. Apparently the symptoms lasted about 2-3 hours. He came to the emergency room and was admitted here for further evaluation. His EKG did not reveal any acute changes. His cardiac enzymes are so far negative. However, patient. The symptoms of similar to what they were before the stent placement. We discussed with the patient regarding further evaluation either by cardiac catheter stress test. Also discussed with Dr. VC Duffy. His decided that patient will have a cardiac catheterization for definitive diagnosis. Patient fully understood the risks and benefits of the procedure. Past Medical History Past Medical History: Coronary Artery Disease (CAD), Cancer, Liver Disease, Myocardial Infarction ([place]) Additional Past Medical History / Comment(s): Pt recently admitted 11/20/17 with [place]. Other hx: Hep c successfully treated, colo/rectal cancer with surgery/ chemo/radiation, colon polyps, diverticular dx, L spontaneous pneumothoraxs with chest tube. Last Myocardial Infarction Date:: 11/20/17 History of Any Multi-Drug Resistant Organisms: None Reported Past Surgical History: Bowel Resection, Heart Catheterization With Stent Additional Past Surgical History / Comment(s): 11/22/17 PCI with stent, colonoscopies/polypectomies Past Anesthesia/Blood Transfusion Reactions: No Reported Reaction Date of Last Stent Placement:: 11/22/17 Smoking Status: Former smoker - Past Family History Father Additional Family Medical History / Comment(s): Father from a ruptured coronary aneurysm at the age of 49yrs. Mother Family Medical History: Cancer Additional Family Medical History / Comment(s): Mother had cervical cancer with metastasis to brain. she at the age of 60yrs. Medications and Allergies Home Medications Medication Instructions Recorded Confirmed Type Atorvastatin [Lipitor] 80 mg PO HS #30 tab 11/23/17 01/02/18 Rx Lisinopril [Zestril] 5 mg PO DAILY #30 tab 11/23/17 01/02/18 Rx Nitroglycerin Sl Tabs [Nitrostat] 0.4 mg SUBLINGUAL Q5M PRN #25 tab 11/23/1704/16 Rx Ticagrelor [Brilinta] 90 mg PO BID #60 tab 11/23/17 01/02/18 Rx Aspirin 81 mg PO HS 01/02/18 01/02/18 History Allergies Allergy/AdvReac Type Severity Reaction Status Date / Time No Known Allergies Allergy Verified 01/02/18 09:29 Physical Exam Vitals: Vital Signs Temp Pulse Pulse Resp BP BP Pulse Ox 01/03/18 08:00 98.0 F 48 L 17 138/65 97 01/03/18 04:00 98.3 F 56 L 16 139/64 98 01/03/18 03:50 65 16 01/03/18 00:00 45 L 16 01/02/18 23:59 98.0 F 54 L 16 147/70 94 L 01/02/18 20:00 46 L 16 01/02/18 19:09 98.4 F 60 15 146/58 97 01/02/18 14:45 97.8 F 51 L 18 137/63 99 01/02/18 14:43 98.3 F 50 L 17 111/62 100 01/02/18 13:00 62 17 108/62 100 01/02/18 11:00 53 L 17 140/67 99 Intake and Output 01/02/18 01/03/18 01/03/18 22:59 06:59 14:59 Intake Total 240 Output Total 3 Balance 240 -3 Intake: Oral 240 Output: Stool 3 Other: Voiding Method Toilet Toilet # Voids 2 1 GENERAL EXAM: Patient is alert and oriented and doesn't appear to be in any acute distress HEENT: Normocephalic. Normal reaction of pupils, equal size, normal range of extraocular motion. No erythema or exudates in the throat. NECK: No masses, no nuchal rigidity. CHEST: No chest wall deformity. LUNGS: Equal air entry with no crackles or wheeze. HEART: S1 and S2 normal with no audible mumurs or gallops. Regular rhythm, femorals equal on both sides.. ABDOMEN: No hepatosplenomegaly, normal bowel sounds, no guarding or rigidity. SKIN: No rashes CENTRAL NERVOUS SYSTEM: No focal deficits. EXTREMITIES: No cyanosis, clubbing or edema. Results 01/02/18 09:30 01/03/18 07:09 Cardiac Enzymes 01/02/18 01/02/18 01/02/18 Range/Units 09:30 14:56 21:01 Troponin I <0.012 <0.012 <0.012 (0.000-0.034) ng/mL Comprehensive Metabolic Panel 01/03/18 Range/Units 07:09 Sodium 140 (137-145) mmol/L Potassium 4.7 (3.5-5.1) mmol/L Chloride 106 (98-107) mmol/L Carbon Dioxide 25 (22-30) mmol/L BUN 22 H (9-20) mg/dL Creatinine 0.85 (0.66-1.25) mg/dL Glucose 92 (74-99) mg/dL Calcium 9.6 (8.4-10.2) mg/dL Current Medications Generic Name Dose Route Start Last Admin Trade Name Freq PRN Reason Stop Dose Admin Hydrocodone Bitart/Acetaminophen 1 each 01/02/18 11:30 Warren 5-325 PO Q4HR PRN Moderate Pain Aspirin 81 mg 01/02/18 21:00 01/02/18 21:42 Aspirin PO 81 mg HS ANNA Administration Atorvastatin Calcium 80 mg 01/02/18 21:00 01/02/18 21:42 Lipitor PO 80 mg HS ANNA Administration Famotidine 20 mg 01/02/18 21:00 01/02/18 21:42 Pepcid PO 20 mg BID ANNA Administration Lisinopril 5 mg 01/02/18 11:45 01/02/18 11:52 Zestril PO Not Given DAILY ANNA Naloxone HCl 0.2 mg 01/02/18 11:30 Narcan IV Q2M PRN Opioid Reversal Ondansetron HCl 4 mg 01/02/18 11:30 Zofran IVP Q8HR PRN Nausea And Vomiting Ticagrelor 90 mg 01/02/18 11:45 01/02/18 21:42 Brilinta PO 90 mg BID ANNA Administration Intake and Output 01/02/18 01/03/18 01/03/18 22:59 06:59 14:59 Intake Total 240 Output Total 3 Balance 240 -3 Intake: Oral 240 Output: Stool 3 Other: Voiding Method Toilet Toilet # Voids 2 1 01/02/18 09:30 01/03/18 07:09 EKG Interpretations (text) Sinus rhythm Assessment and Plan (1) Ischemic heart disease Current Visit: Yes Status: Acute Code(s): I25.9 - CHRONIC ISCHEMIC HEART DISEASE, UNSPECIFIED SNOMED Code(s): 695083151 (2) Chest pain Current Visit: Yes Status: Acute Code(s): R07.9 - CHEST PAIN, UNSPECIFIED SNOMED Code(s): 51955860 (3) Status post placement of stent in right coronary artery Current Visit: Yes Status: Acute Code(s): Z95.5 - PRESENCE OF CORONARY ANGIOPLASTY IMPLANT AND GRAFT SNOMED Code(s): 88056268574938 (4) Hypertension Current Visit: Yes Status: Acute Code(s): I10 - ESSENTIAL (PRIMARY) HYPERTENSION SNOMED Code(s): 24802743 Plan: We will proceed with cardiac catheterization. Further recommendations depend upon the findings. Catheterization is scheduled to be done by Dr. VC Duffy/ nomi.
[2018-01-03] MEDS: FAMOTIDINE 20 MG TAB PO SCH (12:23)
[2018-01-03] MEDS: LISINOPRIL 5 MG TAB PO SCH (12:23)
[2018-01-03] MEDS: TICAGRELOR 90 MG TAB PO SCH (12:23)
[2018-01-03] MEDS ORDERED: LIDOCAINE 2% INJ 20 MG/ML (20 ML MDV) ONE (13:04)
[2018-01-03] MEDS ORDERED: MIDAZOLAM 2 MG/2 ML VIAL ONE (13:12)
[2018-01-03] MEDS ORDERED: fentaNYL (PF) 50 MCG/ML 2 ML AMP ONE (13:13)
[2018-01-03] MEDS ORDERED: fentaNYL (PF) 50 MCG/ML 2 ML AMP IVP ONE (13:18)
[2018-01-03] MEDS ORDERED: MIDAZOLAM 2 MG/2 ML VIAL IVP ONE (13:18)
[2018-01-03] MEDS ORDERED: LIDOCAINE 2% INJ 20 MG/ML SQ ONE (13:23)
[2018-01-03] MEDS ORDERED: IOHEXOL 350 MG/ML 125ML BOTTLE INJ ONE (13:38)
[2018-01-03] MEDS ORDERED: SODIUM CHLORIDE 0.9% 1,000 ML IV ONE (13:40)
[2018-01-03 14:35] VITALS: RESP 16; TEMP 97.9
[2018-01-03] MEDS ORDERED: RX INFO: IV CONTRAST WAS GIVEN 1 EACH MISC MISCELLANE PRN (14:52)
--- NOTE | 2018-01-03 15:39 | CC ---
CARDIAC CATHETERIZATION REPORT Mr. Leonard is a 62-year-old gentleman who was admitted with symptoms of chest discomfort and lightheadedness. EKGs and cardiac enzymes were normal. These symptoms were similar to his prior hospitalization. In view of that, the patient was recommended to have a cardiac catheterization to rule out any significant problem from a restenosis in the stent to the right coronary artery. PROCEDURE: The right groin was prepped and draped in the usual manner and the skin was infiltrated with 2% xylocaine. The right femoral artery was entered using Seldinger technique, a #6-Urdu sheath was placed in. Selective coronary angiography was then performed in multiple projections and the left ventricular pressures were obtained. Patient tolerated the procedure well. Moderate sedation was use sedation, sedation time is 70 minutes. Angiography left main coronary artery is normally patent. LAD is a good caliber blood vessel and the mid LAD has about 30%-40% stenosis. Circumflex coronary artery is normal. The right coronary artery is patent. The site of prior stent placement with good flow is noted. Left ventricular end-diastolic pressure is 4-8 mmHg prior to angiography. No gradient is noted across the aortic valve. FINAL IMPRESSION: The stent in the right coronary artery is patent, the mid LAD has a 30% to 40% stenosis which is unchanged from before. Circumflex coronary artery is normal. RECOMMENDATIONS: We will continue the medical treatment. MMODL / IJN: [id number] /
[2018-01-03 17:13] VITALS: BP 134/63; PULSE 51
--- NOTE | 2018-01-03 21:13 | HP ---
HISTORY AND PHYSICAL CHIEF COMPLAINT: Chest pain, shortness of breath. HISTORY OF PRESENT ILLNESS: This is another recent admission for this 62-year-old white male. Several months ago, he was in the hospital after chest pain and underwent stenting. He has been doing well since and then developed some chest discomfort and came back to the emergency room and was readmitted. Enzymes are normal. He denied any significant diaphoresis, etc. He was a bit nauseated and slightly short of breath. Other than that, review of systems is normal. Past medical history, family history personal and social histories are all otherwise unremarkable and unchanged. He has been on: 1. Ticagrelor 90 mg twice a day. 2. Lisinopril 5 mg once a day. 3. Atorvastatin 80 once a day. 4. Aspirin 81 mg a day. He states that he is not smoking. PHYSICAL EXAM: Blood pressure 102/70 with a pulse of 62, respirations of 18, temperature 98.1. In general, he appeared to be slender and in no acute distress. Skin color is normal. Skin is warm and dry. Lymph nodes are not enlarged. Head, ears, eyes, nose, mouth, and throat were normal. Neck veins are not distended. Thyroid is not enlarged. Chest is clear. Cardiac is normal with no murmurs or extra sounds. The abdomen is soft, nontender without any visceromegaly or masses. Extremities are normal. Neurologically, he is intact. He is admitted to the hospital with diagnoses: 1. Chest pain. 2. Coronary artery disease, status post recent stent placement. 3. Chronic obstructive pulmonary disease. PLAN: 1. Bed rest. 2. IV fluids. 3. Serial EKGs and enzymes. 4. Cardiology consult. MMODL / IJN: [id number] /
--- NOTE | 2018-01-03 22:58 | DS ---
DISCHARGE SUMMARY CHIEF COMPLAINT: Chest pain. HISTORY OF PRESENT ILLNESS AND PHYSICAL EXAM: Details of this man's history and physical can be found in the initial workup. LABORATORY STUDIES: While he was in a hospital he had laboratory studies. Details which can be found in the laboratory section of the chart. COURSE IN HOSPITAL: After admission, he was placed in bedrest, started on intravenous fluids and serial EKGs and enzymes. He was seen by Cardiology and taken for cardiac cath. After that, he stabilized and it was felt that he could go home and he will go home on his usual diet, activity and medication and he will be followed up in a day or 2 in the office. FINAL DIAGNOSES: 1. Chest pain. 2. Coronary artery disease. 3. Chronic obstructive pulmonary disease. OPERATIONS: Cardiac cath. CONSULTATIONS: Cardiology. He is improved. MMODL / NICOLASN: [id number] /
== END 2018-01-03 19:07 | disposition home or self-care (01) ==
LOC: EC 08:31 → 3OBS 11:30
PROVIDERS: ADMIT Family Medicine; ATTEND Family Medicine
DX: R07.89 Other chest pain (principal); I25.10 Atherosclerotic heart disease of native coronary artery without angina pectoris; J44.9 Chronic obstructive pulmonary disease, unspecified; T82.855A Stenosis of coronary artery stent, initial encounter; R11.0 Nausea; R07.2 Precordial pain; R42 Dizziness and giddiness; R61 Generalized hyperhidrosis; I25.2 Old myocardial infarction; I10 Essential (primary) hypertension; Z95.5 Presence of coronary angioplasty implant and graft; Z86.19 Personal history of other infectious and parasitic diseases; Z85.048 Personal history of other malignant neoplasm of rectum, rectosigmoid junction, and anus; Z85.038 Personal history of other malignant neoplasm of large intestine; Z92.21 Personal history of antineoplastic chemotherapy; Z92.3 Personal history of irradiation; Z86.010 Personal history of colon polyps; Z87.891 Personal history of nicotine dependence; Z80.49 Family history of malignant neoplasm of other genital organs; Z80.8 Family history of malignant neoplasm of other organs or systems; Z79.899 Other long term (current) drug therapy; Z79.82 Long term (current) use of aspirin; Z79.02 Long term (current) use of antithrombotics/antiplatelets
CPT/HCPCS: 99285 ×2; 36415; 93005; 93458; 83880; 80053; 80048; 83690; 83735; 84484; 85025; 85610; 85730; 71045; G0378 ×2; C1760; C1894; C1769; J2001; J2250; J3010; Q9967

== ENCOUNTER → 2018-08-14 | Outpatient (CLI) | payer BC ==
[2018-08-14 14:22] LABS: HCT 39.3 % (39.0-53.0); HGB 13.1 gm/dL (13.0-17.5); MCH 32.7 pg (25.0-35.0); MCHC 33.4 g/dL (31.0-37.0); MCV 97.7 fL (80.0-100.0); Mean Platelet Volume 6.6; Platelet Count 255 k/uL (150-450); RBC 4.02 m/uL (4.30-5.90); RDW 12.8 % (11.5-15.5); WBC 8.8 k/uL (3.8-10.6)
[2018-08-14 14:37] LABS: Anion Gap 8 mmol/L; Blood Urea Nitrogen 15 mg/dL (9-20); Calcium 9.5 mg/dL (8.4-10.2); Carbon Dioxide 26 mmol/L (22-30); Chloride 108 mmol/L (98-107); Glucose 94 mg/dL (74-99); Potassium 5.2 mmol/L (3.5-5.1); Sodium 142 mmol/L (137-145)
== END | disposition home or self-care (01) ==
LOC: LABWHC1 13:51
PROVIDERS: ATTEND Internal Medicine Cardiovascular Disease
DX: R42 Dizziness and giddiness (principal)
CPT/HCPCS: 36415; 80048; 85027

== ENCOUNTER 2019-05-18 13:36 | Emergency (ER) | payer BC, MEDICARE ==
[2019-05-18] MEDS ORDERED: SODIUM CHLORIDE 0.9% 500 ML 500 ML IV ONE (13:46)
--- NOTE | 2019-05-18 13:54 | ED ---
Altered Mental Status HPI - General Chief Complaint: Altered Mental Status Stated Complaint: Unresponsive Time Seen by Provider: 05/18/19 13:36 Source: EMS, RN notes reviewed, old records reviewed Mode of arrival: EMS Limitations: altered mental status - History of Present Illness Initial Comments: This is a 64-year-old male who was brought in by EMS after being found unresponsive on the floor at home this morning. He was last seen last evening apparently his normal self is found laying on the floor incontinent of urine and oh 0. Patient did require respiratory assistance and route to. He was noted have an elevated heart rate possibly was SVT briefly. No other information available at this time. There was a question of possible rectal bleeding MD Complaint: altered mental status, decreased responsiveness - Related Data Home Medications Medication Instructions Recorded Confirmed Aspirin 81 mg PO HS 01/02/18 05/18/19 Clopidogrel Bisulfate [Plavix] 75 mg PO DAILY 05/18/19 05/18/19 Previous Rx's Medication Instructions Recorded Atorvastatin [Lipitor] 80 mg PO HS #30 tab 11/23/17 Lisinopril [Zestril] 5 mg PO DAILY #30 tab 11/23/17 Allergies Allergy/AdvReac Type Severity Reaction Status Date / Time No Known Allergies Allergy Verified 05/18/19 13:50 Review of Systems ROS Statement: Those systems with pertinent positive or pertinent negative responses have been documented in the HPI. ROS Other: All systems not noted in ROS Statement are negative. Limitations: ROS unobtainable due to patients medical condition Past Medical History Past Medical History: Coronary Artery Disease (CAD), Cancer, Liver Disease, Myocardial Infarction (MS) Additional Past Medical History / Comment(s): Pt recently admitted 11/20/17 with MS. Other hx: Hep c successfully treated, colo/rectal cancer with surgery/chemo/radiation, colon polyps, diverticular dx, L spontaneous pneumothoraxs with chest tube. Last Myocardial Infarction Date:: 11/20/17 History of Any Multi-Drug Resistant Organisms: None Reported Past Surgical History: Bowel Resection, Heart Catheterization With Stent Additional Past Surgical History / Comment(s): 11/22/17 PCI with stent, c olonoscopies/polypectomies Past Anesthesia/Blood Transfusion Reactions: No Reported Reaction Date of Last Stent Placement:: 11/22/17 Past Psychological History: No Psychological Hx Reported Smoking Status: Former smoker Past Alcohol Use History: None Reported Past Drug Use History: None Reported - Past Family History Father Additional Family Medical History / Comment(s): Father from a ruptured coronary aneurysm at the age of 49yrs. Mother Family Medical History: Cancer Additional Family Medical History / Comment(s): Mother had cervical cancer with metastasis to brain. she at the age of 60yrs. General Exam - General Exam Comments Initial Comments: This is a well-developed sec appearing male who is unresponsive and demonstrated agonal respirations he did maintain a blood pressure and tachycardic pulse rate however. Limitations: altered mental status General appearance: other (Unresponsive) Head exam: Present: other (Dry blood noted over the right orbital region) Eye exam: Present: other (Pupils midpoint and sluggish but equal bilaterally) ENT exam: Present: mucous membranes dry, other (Oral secretions noted) Neck exam: Present: normal inspection, other Respiratory exam: Present: decreased breath sounds, other (Minimal respiratory effort by the patient) Cardiovascular Exam: Present: tachycardia GI/Abdominal exam: Present: soft, normal bowel sounds. Absent: distended, tenderness, guarding, rebound, rigid, bruit, pulsatile mass Rectal exam: Present: other (Incontinent of liquidy brown stool heme-negative) Extremities exam: Present: normal inspection, other (Sluggish capillary refill) Back exam: Present: normal inspection Neurological exam: Present: altered, other (Unresponsive) Psychiatric exam: Present: other (Unable to evaluate) Skin exam: Present: mottled (Cool to touch) Course Vital Signs 05/18/19 05/18/19 05/18/19 13:41 14:00 14:15 Temperature 98.3 F Pulse Rate 154 H 95 97 Respiratory 14 15 18 Rate Blood Pressure 195/125 195/125 154/97 O2 Sat by Pulse 70 L 98 100 Oximetry 05/18/19 05/18/19 05/18/19 14:16 14:30 14:45 Temperature Pulse Rate 81 75 Respiratory 19 20 Rate Blood Pressure 154/97 154/97 121/85 O2 Sat by Pulse 100 100 Oximetry 05/18/19 05/18/19 05/18/19 15:00 15:15 15:30 Temperature Pulse Rate 74 65 Respiratory 23 18 Rate Blood Pressure 126/88 126/88 129/82 O2 Sat by Pulse 100 Oximetry 05/18/19 05/18/19 15:45 16:00 Temperature Pulse Rate 69 66 Respiratory 18 18 Rate Blood Pressure 129/73 137/80 O2 Sat by Pulse 100 100 Oximetry - Reevaluation(s) Reevaluation #1: 05/18/19 14:59 His heart rate and blood pressure is improved Reevaluation #2: 05/18/19 15:42 I did discuss the CAT scan findings with radiologist. There is evidence a subdural hematoma as well as subarachnoid bleed with mass effect. I did discuss the findings with family members that were present. After discussion the patient decided the patient would want everything done. This will require transfer to a facility with neurosurgical capabilities. The arrangements at this time are pending Procedures - Intubation Laryngoscope: Lisa Size: 3 ET Tube Size: 8 ET Tube Uncuffed: No (Coughed) Tube Secured Depth (cm): 23 Tube Secured Location: lips Tube Placement Confirmation: visualized tube passing through cords Patient Tolerated Procedure: well Intubation Complications: none (Achy require some suctioning prior to intubation. No sedation was required) Medical Decision Making - Medical Decision Making I did discuss the findings the patient is family as well as the receiving physician Dr. De Souza patient will be transferred for neurosurgical evaluation. Evaluation was completed on further investigation and discussion with family members patient started developing a headache I believe in the right side yesterday for is taking home. In [place]. He is found this morning on the floor by another family member - Lab Data Result diagrams: 05/18/19 13:50 05/18/19 13:50 Lab Results 05/18/19 05/18/19 05/18/19 Range/Units 13:50 13:50 13:50 WBC 22.5 H (3.8-10.6) k/uL RBC 4.12 L (4.30-5.90) m/uL Hgb 13.1 (13.0-17.5) gm/dL Hct 39.4 (39.0-53.0) % MCV 95.6 (80.0-100.0) fL MCH 31.9 (25.0-35.0) pg MCHC 33.3 (31.0-37.0) g/dL RDW 13.8 (11.5-15.5) % Plt Count 277 (150-450) k/uL Neutrophils % 87 % Lymphocytes % 6 % Monocytes % 6 % Eosinophils % 0 % Basophils % 0 % Neutrophils # 19.5 H (1.3-7.7) k/uL Lymphocytes # 1.4 (1.0-4.8) k/uL Monocytes # 1.3 H (0-1.0) k/uL Eosinophils # 0.1 (0-0.7) k/uL Basophils # 0.0 (0-0.2) k/uL PT 10.2 (9.0-12.0) sec INR 0.9 (<1.2) APTT 23.5 (22.0-30.0) sec Sample Site ABG pH (7.35-7.45) ABG pCO2 (35-45) mmHg ABG pO2 (83-108) mmHg ABG HCO3 (21-25) mmol/L ABG Total CO2 (19-24) mmol/L ABG O2 Saturation (94-97) % ABG Base Excess mmol/L Marcus Test FiO2 % Sodium 139 (137-145) mmol/L Potassium 4.1 (3.5-5.1) mmol/L Chloride 102 (98-107) mmol/L Carbon Dioxide 20 L (22-30) mmol/L Anion Gap 17 mmol/L BUN 19 (9-20) mg/dL Creatinine 0.87 (0.66-1.25) mg/dL Est GFR (CKD-EPI)AfAm >90 (>60 ml/min/1.73 sqM) Est GFR (CKD-EPI)NonAf >90 (>60 ml/min/1.73 sqM) Glucose 182 H (74-99) mg/dL Calcium 9.3 (8.4-10.2) mg/dL Total Bilirubin 0.7 (0.2-1.3) mg/dL AST 33 (17-59) U/L ALT 14 L (21-72) U/L Alkaline Phosphatase 60 (38-126) U/L Ammonia (<30) umol/L Creatine Kinase 698 H (55-170) U/L Troponin I (0.000-0.034) ng/mL Total Protein 7.5 (6.3-8.2) g/dL Albumin 4.8 (3.5-5.0) g/dL Urine Color Urine Appearance (Clear) Urine pH (5.0-8.0) Ur Specific [place] (1.001-1.035) Urine Protein (Negative) Urine Glucose (UA) (Negative) Urine Ketones (Negative) Urine Blood (Negative) Urine Nitrite (Negative) Urine Bilirubin (Negative) Urine Urobilinogen (<2.0) mg/dL Ur Leukocyte Esterase (Negative) Urine RBC (0-5) /hpf Urine WBC (0-5) /hpf Granular Casts (0) /lpf Urine Mucus (None) /hpf Stool Occult Blood (Negative) Urine Opiates Screen (NotDetected) Ur Oxycodone Screen (NotDetected) Urine Methadone Screen (NotDetected) Ur Propoxyphene Screen (NotDetected) Ur Barbiturates Screen (NotDetected) U Tricyclic Antidepress (NotDetected) Ur Phencyclidine Scrn (NotDetected) Ur Amphetamines Screen (NotDetected) U Methamphetamines Scrn (NotDetected) U Benzodiazepines Scrn (NotDetected) Urine Cocaine Screen (NotDetected) U Marijuana (THC) Screen (NotDetected) 05/18/19 05/18/19 05/18/19 Range/Units 13:50 13:50 14:22 WBC (3.8-10.6) k/uL RBC (4.30-5.90) m/uL Hgb (13.0-17.5) gm/dL Hct (39.0-53.0) % MCV (80.0-100.0) fL MCH (25.0-35.0) pg MCHC (31.0-37.0) g/dL RDW (11.5-15.5) % Plt Count (150-450) k/uL Neutrophils % % Lymphocytes % % Monocytes % % Eosinophils % % Basophils % % Neutrophils # (1.3-7.7) k/uL Lymphocytes # (1.0-4.8) k/uL Monocytes # (0-1.0) k/uL Eosinophils # (0-0.7) k/uL Basophils # (0-0.2) k/uL PT (9.0-12.0) sec INR (<1.2) APTT (22.0-30.0) sec Sample Site R radial ABG pH 7.37 (7.35-7.45) ABG pCO2 39 (35-45) mmHg ABG pO2 >400 H (83-108) mmHg ABG HCO3 23 (21-25) mmol/L ABG Total CO2 24 (19-24) mmol/L ABG O2 Saturation 98.5 H (94-97) % ABG Base Excess -2.8 mmol/L Marcus Test Yes FiO2 100 % Sodium (137-145) mmol/L Potassium (3.5-5.1) mmol/L Chloride (98-107) mmol/L Carbon Dioxide (22-30) mmol/L Anion Gap mmol/L BUN (9-20) mg/dL Creatinine (0.66-1.25) mg/dL Est GFR (CKD-EPI)AfAm (>60 ml/min/1.73 sqM) Est GFR (CKD-EPI)NonAf (>60 ml/min/1.73 sqM) Glucose (74-99) mg/dL Calcium (8.4-10.2) mg/dL Total Bilirubin (0.2-1.3) mg/dL AST (17-59) U/L ALT (21-72) U/L Alkaline Phosphatase (38-126) U/L Ammonia 14 (<30) umol/L Creatine Kinase (55-170) U/L Troponin I 0.383 H* (0.000-0.034) ng/mL Total Protein (6.3-8.2) g/dL Albumin (3.5-5.0) g/dL Urine Color Urine Appearance (Clear) Urine pH (5.0-8.0) Ur Specific [place] (1.001-1.035) Urine Protein (Negative) Urine Glucose (UA) (Negative) Urine Ketones (Negative) Urine Blood (Negative) Urine Nitrite (Negative) Urine Bilirubin (Negative) Urine Urobilinogen (<2.0) mg/dL Ur Leukocyte Esterase (Negative) Urine RBC (0-5) /hpf Urine WBC (0-5) /hpf Granular Casts (0) /lpf Urine Mucus (None) /hpf Stool Occult Blood (Negative) Urine Opiates Screen (NotDetected) Ur Oxycodone Screen (NotDetected) Urine Methadone Screen (NotDetected) Ur Propoxyphene Screen (NotDetected) Ur Barbiturates Screen (NotDetected) U Tricyclic Antidepress (NotDetected) Ur Phencyclidine Scrn (NotDetected) Ur Amphetamines Screen (NotDetected) U Methamphetamines Scrn (NotDetected) U Benzodiazepines Scrn (NotDetected) Urine Cocaine Screen (NotDetected) U Marijuana (THC) Screen (NotDetected) 05/18/19 05/18/19 Range/Units 14:30 14:30 WBC (3.8-10.6) k/uL RBC (4.30-5.90) m/uL Hgb (13.0-17.5) gm/dL Hct (39.0-53.0) % MCV (80.0-100.0) fL MCH (25.0-35.0) pg MCHC (31.0-37.0) g/dL RDW (11.5-15.5) % Plt Count (150-450) k/uL Neutrophils % % Lymphocytes % % Monocytes % % Eosinophils % % Basophils % % Neutrophils # (1.3-7.7) k/uL Lymphocytes # (1.0-4.8) k/uL Monocytes # (0-1.0) k/uL Eosinophils # (0-0.7) k/uL Basophils # (0-0.2) k/uL PT (9.0-12.0) sec INR (<1.2) APTT (22.0-30.0) sec Sample Site ABG pH (7.35-7.45) ABG pCO2 (35-45) mmHg ABG pO2 (83-108) mmHg ABG HCO3 (21-25) mmol/L ABG Total CO2 (19-24) mmol/L ABG O2 Saturation (94-97) % ABG Base Excess mmol/L Marcus Test FiO2 % Sodium (137-145) mmol/L Potassium (3.5-5.1) mmol/L Chloride (98-107) mmol/L Carbon Dioxide (22-30) mmol/L Anion Gap mmol/L BUN (9-20) mg/dL Creatinine (0.66-1.25) mg/dL Est GFR (CKD-EPI)AfAm (>60 ml/min/1.73 sqM) Est GFR (CKD-EPI)NonAf (>60 ml/min/1.73 sqM) Glucose (74-99) mg/dL Calcium (8.4-10.2) mg/dL Total Bilirubin (0.2-1.3) mg/dL AST (17-59) U/L ALT (21-72) U/L Alkaline Phosphatase (38-126) U/L Ammonia (<30) umol/L Creatine Kinase (55-170) U/L Troponin I (0.000-0.034) ng/mL Total Protein (6.3-8.2) g/dL Albumin (3.5-5.0) g/dL Urine Color Yellow Urine Appearance Clear (Clear) Urine pH 7.0 (5.0-8.0) Ur Specific [place] 1.014 (1.001-1.035) Urine Protein 1+ H (Negative) Urine Glucose (UA) 3+ H (Negative) Urine Ketones 1+ H (Negative) Urine Blood Large H (Negative) Urine Nitrite Negative (Negative) Urine Bilirubin Negative (Negative) Urine Urobilinogen <2.0 (<2.0) mg/dL Ur Leukocyte Esterase Negative (Negative) Urine RBC 3 (0-5) /hpf Urine WBC 1 (0-5) /hpf Granular Casts 3 (0) /lpf Urine Mucus Rare H (None) /hpf Stool Occult Blood Negative (Negative) Urine Opiates Screen Not Detected (NotDetected) Ur Oxycodone Screen Not Detected (NotDetected) Urine Methadone Screen Not Detected (NotDetected) Ur Propoxyphene Screen Not Detected (NotDetected) Ur Barbiturates Screen Not Detected (NotDetected) U Tricyclic Antidepress Not Detected (NotDetected) Ur Phencyclidine Scrn Not Detected (NotDetected) Ur Amphetamines Screen Not Detected (NotDetected) U Methamphetamines Scrn Not Detected (NotDetected) U Benzodiazepines Scrn Not Detected (NotDetected) Urine Cocaine Screen Not Detected (NotDetected) U Marijuana (THC) Screen Detected H (NotDetected) - EKG Data -: EKG Interpreted by Me EKG shows normal: sinus rhythm (Sinus rhythm a rate 87. Interval 146 QRS duration 16 QT since QTC 402/[address] configuration prolonged QT) - Radiology Data Radiology results: report reviewed (I did review the imaging and report the endotracheal tube was above the chapis evidence of increased pulmonary vascular markings CAT scan shows evidence of a subdural hematoma and subarachnoid bleed with mass effect 15 to the right.), image reviewed Critical Care Time Critical Care Time: Yes Critical Care Time: 49 minutes of critical care time which includes initial presentation with history physical labs x-rays multiple reevaluation the patient multiple discussions with the patient family discussion with the receiving physician at [facility] discussed with paramedics who is on arrival as well as prior to disposition. Review old charting that was available and documentation of the above Disposition Clinical Impression: Altered mental status, Subarachnoid hemorrhage, Subdural hematoma, Acute respiratory failure, Dehydration Disposition: OTHER INSTITUTION NOT DEFINED Condition: Critical Referrals: Major Ocampo MD [Primary Care Provider] - 1-2 days - Out of Hospital Transfer - Req. Specs Out of Hospital Transfer - Requested Specifics: Other Emergency Center
[2019-05-18 14:09] LABS: Basophils % (A) 0 %; Eosinophils # (A) 0.1 k/uL (0-0.7); Eosinophils % (A) 0 %; HCT 39.4 % (39.0-53.0); HGB 13.1 gm/dL (13.0-17.5); Lymphocytes # (A) 1.4 k/uL (1.0-4.8); Lymphocytes % (A) 6 %; MCH 31.9 pg (25.0-35.0); MCHC 33.3 g/dL (31.0-37.0); MCV 95.6 fL (80.0-100.0); Mean Platelet Volume 7.3; Monocytes # (A) 1.3 k/uL (0-1.0); Monocytes % (A) 6 %; Neutrophils # (A) 19.5 k/uL (1.3-7.7); Neutrophils % (A) 87 %; Platelet Count 277 k/uL (150-450); RBC 4.12 m/uL (4.30-5.90); RDW 13.8 % (11.5-15.5); WBC 22.5 k/uL (3.8-10.6)
[2019-05-18 14:16] LABS: INR 0.9 (<1.2); Partial Thromboplastin Time 23.5 sec (22.0-30.0); Prothrombin Time 10.2 sec (9.0-12.0)
[2019-05-18 14:21] LABS: ALT 14 U/L (21-72); AST 33 U/L (17-59); African American GFR (CKD) >90 (>60 ml/min/1.73 sqM); Albumin 4.8 g/dL (3.5-5.0); Alkaline Phosphatase 60 U/L (38-126); Anion Gap 17 mmol/L; Blood Urea Nitrogen 19 mg/dL (9-20); Calcium 9.3 mg/dL (8.4-10.2); Carbon Dioxide 20 mmol/L (22-30); Chloride 102 mmol/L (98-107); Creatine Kinase 698 U/L (55-170); Glucose 182 mg/dL (74-99); Potassium 4.1 mmol/L (3.5-5.1); Sodium 139 mmol/L (137-145); Total Bilirubin 0.7 mg/dL (0.2-1.3); Total Protein 7.5 g/dL (6.3-8.2)
[2019-05-18 14:25] LABS: ABG Base Excess -2.8 mmol/L; ABG HCO3 23 mmol/L (21-25); ABG Oxygen Saturation 98.5 % (94-97); ABG PCO2 39 mmHg (35-45); ABG PH 7.37 (7.35-7.45); ABG PO2 >400 mmHg (83-108); ABG TCO2 24 mmol/L (19-24); Allen Test Performed? Yes
[2019-05-18] MEDS ORDERED: PROPOFOL 1,000 MG in EMPTY BAG 1 BAG IV ONE (14:40)
[2019-05-18 14:58] LABS: Amphetamine Screen,Urine Not Detected (NotDetected); Appearance,Urine Clear (Clear); Barbiturate Screen,Urine Not Detected (NotDetected); Benzodiazepines Screen,Urine Not Detected (NotDetected); Bilirubin,Urine Negative (Negative); Blood,Urine Large (Negative); Cocaine Screen,Urine Not Detected (NotDetected); Color,Urine Yellow; Glucose,Urine (UA) 3+ (Negative); Granular Casts,Urine 3 /lpf (0); Ketones,Urine 1+ (Negative); Leukocyte Esterase,Urine Negative (Negative); Methadone Screen, Urine Not Detected (NotDetected); Mucus,Urine Rare /hpf; Nitrite,Urine Negative (Negative); Opiate Screen,Urine Not Detected (NotDetected); Oxycodone Screen, Urine Not Detected (NotDetected); Phencyclidine Screen,Urine Not Detected (NotDetected); Protein,Urine 1+ (Negative); RBC,Urine 3 /hpf (0-5); Specific Gravity,Urine 1.014 (1.001-1.035); Tricyclic Antidepressant,Urine Not Detected (NotDetected); Urn Cannabinoid Scrn Detected (NotDetected); Urobilinogen,Urine <2.0 mg/dL (<2.0); WBC,Urine 1 /hpf (0-5)
--- NOTE | 2019-05-18 15:00 | XR ---
EXAMINATION TYPE: XR chest 1V portable DATE OF EXAM: 05/18/2019 COMPARISON: 01/02/2018 HISTORY: Altered mental status TECHNIQUE: Single frontal view of the chest is obtained. FINDINGS: Endotracheal tube is 5 cm from the chapis. There is pulmonary interstitial edema in the mi d and upper lung [place]. There is infiltrate around the pulmonary perla. There are chest leads. There is nasogastric tube. IMPRESSION: There is new pulmonary edema compared to last exam. Normal heart size.
--- NOTE | 2019-05-18 15:32 | CT ---
EXAMINATION TYPE: CT brain betina zamora DATE OF EXAM: 05/18/2019 COMPARISON: 11/20/[address] scan HISTORY: Unresponsive. CT DLP: combined 1153.8 mGycm Automated exposure control for dose reduction was used. TECHNIQUE: CT scan of the head and cervical spine are performed without contrast. FINDINGS: There is a large left side acute subdural hemorrhage. This measures up to 1.7 cm in thick ness. There is mass effect. There is acute hemorrhage in the left lateral ventricle and posterior asp ect right lateral ventricle. The midline is shifted to the right side. There is hemorrhage in the fou rth and third ventricles. Third ventricle is shifted to the right side. There is enlargement of the r ight lateral ventricle. The cervical vertebra have normal alignment. There is some narrowing of the disc spaces at C5-6 and C 6-7 with spurring of the endplates. Skull base is intact. IMPRESSION: There is acute massive subarachnoid and subdural hemorrhage as above with mass effect and midline apryl ft. There is probably obstructive type hydrocephalus. There is effacement of the cerebral sulci. No acute abnormality of the cervical spine. Spondylotic changes. This exam was discussed with ER physician at 3:30 PM.
--- NOTE | 2019-05-18 15:35 | CT ---
EXAMINATION TYPE: CT facial bones wo con DATE OF EXAM: 05/18/2019 COMPARISON: None HISTORY: Unresponsive. CT DLP: combined 1153.8 mGycm Automated exposure control for dose reduction was used. TECHNIQUE: CT scan of the sinuses is performed without contrast, axial images are obtained, coronal r eformatted images are also reviewed. FINDINGS: The orbital margins are intact. There is no evidence of orbital mass. There is no blowout f racture. The mandibular ring is intact. Zygomatic arches appear normal. Nasal bone appears intact. Th ere is endotracheal tube and nasogastric tube noted. Temporal bones are intact. IMPRESSION: No acute abnormality of the facial bones. No fracture seen.
[2019-05-18 16:45] VITALS: BP 134/80; PULSE 67; RESP 20; TEMP 97.8
== END 2019-05-18 16:46 | disposition other institution (70) ==
LOC: EC 13:36
DX: I60.9 Nontraumatic subarachnoid hemorrhage, unspecified (principal); I62.00 Nontraumatic subdural hemorrhage, unspecified; J96.00 Acute respiratory failure, unspecified whether with hypoxia or hypercapnia; E86.0 Dehydration; I25.10 Atherosclerotic heart disease of native coronary artery without angina pectoris; I25.2 Old myocardial infarction; Z85.048 Personal history of other malignant neoplasm of rectum, rectosigmoid junction, and anus; Z92.21 Personal history of antineoplastic chemotherapy; Z95.5 Presence of coronary angioplasty implant and graft; Z87.891 Personal history of nicotine dependence; Z79.82 Long term (current) use of aspirin; Z79.02 Long term (current) use of antithrombotics/antiplatelets
CPT/HCPCS: 36415; 36600; 93005; 80053; 82140; 82550; 82805; 84484; 85025; 85610; 85730; 82272; 81001; 87040; 80306; 71045; 72125; 70486; 70450; 99291; 31500; 96360; J2704